=== PATIENT | male | born 1985 | race Hispanic/Latino ===

== ENCOUNTER 2021-07-21 14:06 | Emergency (ER) | payer OTHER ==
--- OUTSIDE RECORDS SUMMARY | 2021-07-21 14:09 | XMS REPORT | Continuity of Care Document ---
:[address] [facility] t Address [address] [place] [address] Care Team Providers Name Role Phone PCP, DOES NOT HAVE A Primary Care Physician Unavailable Jevon LAMBERT Attending Clinician Unavailable Giovanna LYNCH S Attending Clinician Jevon Cota Attending Clinician HARDIK ESPINOZA Attending Clinician Unavailable Jevon LAMBERT Admitting Clinician Unavailable Payers Payer Name Policy Type Policy Number Effective Date Expiration Date [facility] [id number] USP 00:00:00 MEDICAID PENDING PENDING 2021 00:00:00 Problems Condition Condition Condition Status Onset Resolution Last Treating Co mments Source Name Details Category Date Date Treatment Clinician Date No known No known Disease Unive rs active active ity of problems problems [facility] Allergies, Adverse Reactions, Alerts Allergy Allergy Status Severity Reaction(s) Onset Inactive Treating Comm ents Source Name Type Date Date Clinician NO KNOWN Drug Active Univers ALLERGIE Class ity of [facility] Social History Social Habit Start Date Stop Date Quantity Comments Source Exposure to Not sure [facility] SARS-CoV-2 (event) Medica l Branch Sex Assigned At [birth year] [facility] 00:00:00 00:00:00 Medical Branch Smoking Status Start Date Stop Date Source Unknown if ever smoked [facility] [place] [facility] Medications Ordered Filled Start Stop Current Ordering Indication Dosage Frequency Signature Comments Components Source Medication Medication Date Date Medication? Clinician (SIG) Name Name HYDROcodone 2021- No 1{tbl} 1 tablet, Univers -acetaminop 06-30 Oral, ity of hen ([place] 15:15: 14:13 ONCE, 1 Pete as 5) 5-325 mg 00 :00 dose, On Medi pako tablet Tue06/30/21 Branc h tablet at 0915, ESTELLE HYDROcodone 2021- No 1{tbl} 1 tablet, Univers -acetaminop 06-30 Oral, ity of hen ([place]) 12:30[place] 11[place] 10[place] :00 dose, On Medica l tablet Tue06/30/21 Branc h tablet at 0630, Routine ibuprofen Yes [id number] 800mg Take 1 Univers 800 mg 06-30 tablet by ity of tablet 00:00: mouth [place] 00 every 8 Medical (eight) Branch hours as needed for Pain (scale 4-6). No known No Univers medications - ity of 10:05: [address] Vital Signs Vital Name Observation Time Observation Value Comments Source Systolic blood 2021-06-30 14:00:00 158 mm[Hg] [facility] Diastolic blood 2021-06-30 14:00:00 99 mm[Hg] [facility] Heart rate 2021-06-30 14:00:00 54 /min [facility] Respiratory rate 2021-06-30 14:00:00 18 /min [facility] Oxygen saturation in 2021-06-30 14:00:00 98 /min [facility] Arterial blood by [place] [facility]i [facility] Pulse oximetry Branch Body height 2021-06-30 11:12:00 170.2 cm [facility] Body weight 2021-06-30 11:12:00 77.111 kg [facility] BMI 2021-06-30 11:12:00 26.63 kg/m2 [facility] Body temperature 2021-06-30 11:12:00 36.72 Patricia [facility] Systolic blood 2021-06-21 15:46:00 181 mm[Hg] Univer sity of pressure [facility] Diastolic blood 2021-06-21 15:46:00 107 mm[Hg] Unive rsity of pressure [facility] Heart rate 2021-06-21 15:46:00 100 /min [facility] Body temperature 2021-06-21 15:46:00 37.17 Patricia [facility] 2021-06-21 15:46:00 18 /min [facility] Body height 2021-06-21 15:46:00 170.2 cm [facility] Body weight 2021-06-21 15:46:00 80.74 kg [facility] BMI 2021-06-21 15:46:00 27.88 kg/m2 [facility] Oxygen saturation in 2021-06-21 15:46:00 98 /min [facility] blood by [facility] Pulse oximetry Branch Procedures Procedure Date / Time Performed Performing Clinician Sourc e XR LUMBAR SPINE 3 2021-06-30 13:19:56 Karey Lambert [facility] [place] RESUPERF WND FACE 2021-06-30 12:20:00 Karey Lambert [facility] 2.6-5 CM [facility] CT CERVICAL SPINE WO 2021-06-30 12:08:00 Karey Lambert [facility] CONTRAST [facility] CT 2021-06-30 12:08:00 Karey Lambert [facility] MAXILLOFACIAL/MANDIBL Medical Br anch E WO CONTRAST CT HEAD WO CONTRAST 2021-06-30 12:08:00 Karey Lambert [facility] XR CHEST 1 2021-06-30 11:56:59 Karey Lambert [facility] NOTICE OF PRIVACY 2021-06-21 15:34:45 Doctor Unassigned, No [facility] PRACTICES Name Medical Branch Encounters Start End Encounter Admission Attending Care Care Encounter Source Date/Time Date/Time Type Type Clinicians Facility Department ID 2021-06-30 2021-06-30 Emergency X TRACY LAMBERTMB ERT [id number] Univers 05:10:00 10:00:00 KAREY ity [facility] 2021-06-30 2021-06-30 [facility] [id number] Univers 05:10:00 10:00:00 Karey CESAR [id number] ity of [place] [id number] [facility] [id number] [address] 2021-06-21 2021-06-21 Emergency [facility] [id number] Univers 09:49:00 12:34:00 [place] [id number] i ty of [place] [id number] [facility] [id number] [address] 2021-06-21 2021-06-21 Emergency X [facility] ERT [id number] Univers 09:49:00 12:34:00 ity [facility] 2020-02-23 2020-02-23 Emergency E TIERA ESPINOZA [id number] [facility] 13:17:00 15:44:00 SUNNY Results This patient has no known results.
[2021-07-21 14:35] LABS: Absolute Lymphocytes (CBC) 1.2 K/uL (0.7-4.9); Hematocrit 42.8 % (39.6-49.0); Lymphocytes % 12.2 % (15.3-44.8); MPV 8.5 fL (7.6-11.3); RBC Red Blood Cell Count 4.92 M/uL (4.33-5.43)
--- NOTE | 2021-07-21 15:04 | RAD REPORT ---
EXAM DESCRIPTION: CT - Head C Spine Cap W Con - 07/21/2021 2:50 pm CLINICAL HISTORY: PAIN COMPARISON: No comparisons TECHNIQUE: Axial [address] head images were obtained. Axial [address] cervical spine images were obtaine d with sagittal and coronal reconstruction images reviewed. During dynamic enhancement of 100mL non-i onic contrast, axial 5 mm images of the chest, abdomen and pelvis were obtained. Biphasic technique p erformed of the abdomen and pelvis. All CT scans are performed using dose optimization technique as appropriate and may include automated exposure control or mA/KV adjustment according to patient size. FINDINGS: No intracranial hemorrhage, mass or edema. No midline shift or abnormal fluid collection. Mastoid air cells and paranasal sinuses are clear. No skull fracture. CT cervical spine imaging shows normal height. Normal alignment of the vertebrae. No disc space narro wing. No paraspinal mass or hematoma seen. Central canal detail is inherently limited. Concerns for t raumatic disc herniation or traumatic cord injury can be further addressed with MR imaging. CT chest shows no pneumothorax, pulmonary contusion or pleural fluid collection. No mediastinal hemat ember and the aorta and pulmonary arteries are unremarkable. No chest will mass or abnormal axillary fi nding. No displaced rib fracture or other significant bony finding. CT abdomen and pelvis show no injury to solid abdominal viscera. Gallbladder and biliary tree are unr emarkable. No bowel injury or significant finding. No free air, free fluid or abnormal stranding. No urinary bladder abnormality. No significant bony finding. No significant vascular finding. IMPRESSION: No significant CT Head finding. No significant CT Cervical Spine finding. No significant CT Chest finding. No significant CT Abdomen and Pelvis finding.
[2021-07-21 15:07] LABS: Potassium 3.8 mmol/L (3.5-5.1)
[2021-07-21] MEDS ORDERED: MIDAZOLAM HCL 2 MG/2 ML INJ ONE (15:08)
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
[2021-07-21 17:18] VITALS: O2SAT 100
[2021-07-21 17:20] VITALS: BP 123/87
[2021-07-22] MEDS ORDERED: ONDANSETRON 4 MG/2 ML VIAL ONE (02:15)
== END 2021-07-21 16:08 | disposition home or self-care (01) ==
LOC: ER 14:06
DX: F15.129 Other stimulant abuse with intoxication, unspecified (principal); V49.40XA Driver injured in collision with unspecified motor vehicles in traffic accident, initial encounter; Z78.1 Physical restraint status
CPT/HCPCS: 96361; 85025; 80048; 36415; 86900; 86850; 82565; 86901; 70450; 72125; 71260; 74177; 96375; 96372; 96374; 99285; Q9967; J2250

== ENCOUNTER 2023-11-24 19:28 | Emergency (ER) | payer SELFPAY ==
--- OUTSIDE RECORDS SUMMARY | 2023-11-24 19:31 | XMS REPORT | Continuity of Care Document ---
Author Name Unknown Address [address] [facility] [address] [place] [address] [facility] [address] [facility] [address] [place] [address] Care Team Providers Care Restaurant Inspector Name Role Phone PCP, PATIENT DOES NOT HAVE A Primary Care Physic asya Unavailable CONCEPCION NIELSEN Attending Clinician Unavailab JAMIR Toure Attending Clinician UnavailISELA Briseno Attending Clinician Unavailable Isela Heredia MD Attending Clinician [phone] CASSY BHANDARI S Attending Clinician Unavailable Cassy Cota S Attending Clinician [phone] Doctor Unassigned, [place] Attending Clinician U Veronica Mosley Attending Clinician [phone] Nurse, [facility] Attending Clinician Unavailabl e Unknown, Attending Attending Clinician UnavailBen Mitchell MD Attending Clinician [phone] UNKNOWN, ATTENDING Attending Clinician Unavailab percy Only, Web Test Attending Clinician Unavailable SUNNY ESPINOZA Attending Clinician Unava steve Fried RN, Sydney Harmon Attending Clinician Allyn JEFF Moon Attending Clinician Unavailable CONCEPCION NIELSEN Admitting Clinician Unavailab ISELA Meraz Admitting Clinician Unavailable Payers Payer Name Policy Type Policy Number Effective Date Expirati on Date Source ANGELA MARTIN [id number] 2019 00:00:00 JULY [facility] SISSY [id number] 00:00:00 MEDICAID PENDING PENDING 2021 00:00:00 Problems Condition Name Condition Details Condition Category Status Onset Date Resolution Date Last Treatment Date Treating Clinician Comments Source No known active problems No known active problems Disease [facility] Allergies, Adverse Reactions, Alerts Allergy Name Allergy Type Status Severity Reaction(s) Onset Date Inactive Date Treating Clinician Comments Source NO KNOWN ALLERGIE S Drug Class Active [facility] Social History Social Habit Start Date Stop Date Quantity Comments Source Exposure to SARS-CoV-2 (event) Not sure [facility] Sex Assigned At 1985 00:00:00 1985 00:00:00 [facility] Smoking Status Start Date Stop Date Source Unknown if ever smoked [facility] Medications Ordered Medication Name Filled Medication Name Start Date Stop Date Current Medication? Ordering Clinician Indication Dosage Frequency Signature (SIG) Comments Components Source HYDROcodone -acetaminop hen (NORCO 5) 5-325 mg tablet 1 tablet 06-30 15:15: 00 06-30 14:13 :00 No 1{tbl} 1 tablet, Oral, ONCE, 1 dose, On Tue06/30/21 at 0915, ESTELLE [facility] HYDROcodone -acetaminop hen (NORCO) 10-325 mg tablet 1 tablet 06-30 12:30: 00 06-30 11:24 :00 No 1{tbl} 1 tablet, Oral, ONCE, 1 dose, On Tue06/30/21 at 0630, Routine [facility] ibuprofen 800 mg tablet 06-30 00:00: 00 Yes [id number] 800mg Take 1 tablet by mouth every 8 (eight) hours as needed for Pain (scale 4-6). [facility] No known medications 06-21 10:05: 54 No [facility] Vital Signs Vital Name Observation Time Observation Value Comments S ource Systolic blood pressure 2021-06-30 14:00:00 158 mm[Hg] [facility] Diastolic blood pressure 2021-06-30 14:00:00 99 mm[Hg] [facility] Heart rate 2021-06-30 14:00:00 54 /min Unive [facility] Respiratory rate 2021-06-30 14:00:00 18 /min [facility] Oxygen saturation in Arterial blood by Pulse oximetry 2021-06-30 14:00:00 98 /min [facility] Body height 2021-06-30 11:12:00 170.2 cm [facility] Body weight 2021-06-30 11:12:00 77.111 kg [facility] BMI 2021-06-30 11:12:00 26.63 kg/m2 [facility] Body temperature 2021-06-30 11:12:00 36.72 Patricia [facility] Systolic blood pressure 2021-06-21 15:46:00 181 mm[Hg] [facility] Diastolic blood pressure 2021-06-21 15:46:00 107 mm[Hg] [facility] Heart rate 2021-06-21 15:46:00 100 /[facility] Body temperature 2021-06-21 15:46:00 37.17 Patricia [facility] Respiratory rate 2021-06-21 15:46:00 18 /min [facility] Body height 2021-06-21 15:46:00 170.2 cm [facility] Body weight 2021-06-21 15:46:00 80.74 kg [facility] BMI 2021-06-21 15:46:00 27.88 kg/m2 [facility] Oxygen saturation in Arterial blood by Pulse oximetry 2021-06-21 15:46:00 98 /min [facility] Procedures Procedure Date / Time Performed Performing Clinicia n Source XR LUMBAR SPINE 3 VW 2021-06-30 13:19:56 Julita Heredia i [facility] [place] RESUPERF WND FACE 2.6-5 CM 2021-06-30 12:20:00 Isela Heredia [facility] CT CERVICAL SPINE WO CONTRAST 2021-06-30 12:08:00 Isela Heredia [facility] CT MAXILLOFACIAL/MANDIBL E WO CONTRAST 2021-06-30 12:08:00 Isela Heredia [facility] CT HEAD WO CONTRAST 2021-06-30 12:08:00 Isela Heredia [facility] XR CHEST 1 VW 2021-06-30 11:56:59 [facility] PRACT[facility] 2021-06-21 15:34:45 Doctor Unassigned, [place] [facility] Encounters Start Date/Time End Date/Time Encounter Type Admission Type Attending [facility] Facility Care Department Encounter ID Source 2021-03-28 19:01:51 Emergency [facility] [id number] [facility] 2023-07-29 03:59:00 2023-07-30 18:40:00 Inpatient CONCEPCION JIMENEZ [facility] MED [id number] [facility] 2023-07-28 00:00:00 2023-07-28 23:59:00 Outpatient JAMIR LO [facility] RUY [id number] [facility] 2021-06-30 05:10:00 2021-06-30 10:00:00 Emergency X MEJIABURTON RAMIRE[facility]GARRET [facility] ERT [id number] [facility] 2021-06-30 05:10:00 2021-06-30 10:00:00 Emergency MejiaIsela ramirez [facility] [id number] [facility] 2021-06-21 09:49:00 2021-06-21 12:34:00 Emergency X CASSY BHANDARI [facility] ERT [id number] [facility] 2021-06-21 09:49:00 2021-06-21 12:34:00 Emergency Cassy Bhandari [facility] [id number] [facility] 2021-06-21 09:49:00 2021-06-21 12:34:00 Emergency X [facility] ERT [id number] [facility] 2021-06-21 00:00:00 2021-06-21 00:00:00 Orders Only Doctor Unassigned, [place] [facility] [id number] [facility] 2020-06-21 00:16:00 2020-06-21 00:27:00 Emergency Isela Heredia S [facility] [id number] [id number] [facility] 2020-05-13 00:00:00 2020-05-13 00:00:00 Letter (Out) Ver[facility] 1..114 [id number] [facility] 2020-05-12 18:50:03 2020-05-12 19:01:48 Laboratory Only Nurse, [place] Urgent Unknown, Attending [facility] 1..114 [id number] [facility] 2020-05-12 19:00:00 2020-05-12 19:00:00 Outpatient R UNKNOWN, ATTENDING [facility] [id number] [facility] 2019-12-07 09:06:16 2020-02-27 14:57:27 Laboratory Only Only, Web Test Unknown, Attending [facility] [id number] [id number] [facility] 2020-02-23 13:17:00 2020-02-23 15:44:00 Emergency E ALEXIS, JON [id number] 2019-12-12 00:00:00 2019-12-12 00:00:00 Letter (Out) Sydney Goodson [facility] [id number] [facility] 2019-12-12 00:00:00 2019-12-12 00:00:00 Telephone Sydney Goodson [facility] [id number] [facility] 2019-12-07 09:30:00 2019-12-07 09:30:00 Outpatient R UNKNOWN, ATTENDING [facility] [id number] [facility] 2019-12-05 16:00:00 2019-12-05 16:00:00 Outpatient R UNKNOWN, ATTENDING [facility] [id number] [facility] 2019-11-30 17:00:00 2019-11-30 17:00:00 Outpatient R JEFF VOGEL [facility] [id number] [facility]
[2023-11-24] MEDS ORDERED: LORazepam 2 MG/ML VIAL ONE (20:12)
[2023-11-24] MEDS ORDERED: NA CHLORIDE 0.9% 0 ML ONE (20:13)
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
== END 2023-11-24 20:52 | disposition home or self-care (01) ==
LOC: ER 19:28
DX: R53.1 Weakness (principal); F17.290 Nicotine dependence, other tobacco product, uncomplicated
CPT/HCPCS: 99284; J7030